=== PATIENT | female | born 1985 | race Two or more races ===

== ENCOUNTER 2021-04-03 09:53 | Emergency (ER) | payer SELFPAY ==
[~2021-04-03] VITALS: Ht 172.7 cm; Wt 50.3 kg
[2021-04-03] MEDS ORDERED: NALOXONE HCL 0.4 MG/ML AMPUL IM ONE (10:00)
[2021-04-03] MEDS ORDERED: NALOXONE HCL 0.4 MG/ML AMPUL ONE ×2 (10:04→11:13)
--- NOTE | 2021-04-03 10:18 | NUR ---
BLOOD SUGAR 65, WILL CONTINUE TO MONITOR
[2021-04-03 10:44] LABS: BASOPHILS % (AUTO) 0.5 % (0.0-2.0); EOSINOPHILS % (AUTO) 0.6 % (0.0-6.0); HEMATOCRIT 44 % (33-45); HEMOGLOBIN 14.7 g/dL (11.5-14.8); LYMPHOCYTES # (AUTO) 1.4 K/uL (0.8-4.8); LYMPHOCYTES % (AUTO) 26.7 % (20.0-44.0); MEAN CORPUSCULAR HGB CONC 34 g/dl (31.0-36.0); MEAN CORPUSCULAR VOLUME 96 fL (82-100); MONOCYTES # (AUTO) 0.3 K/uL (0.1-1.30); MONOCYTES % (AUTO) 6.5 % (2.0-12.0); NEUTROPHILS # (AUTO) 3.3 K/uL (1.8-8.9); NEUTROPHILS % (AUTO) 65.7 % (43.0-81.0); PLATELET COUNT (AUTO) 445 K/uL (150-450); RED BLOOD CELL COUNT(AUTO) 4.52 MIL/uL (4.0-5.2); WHITE BLOOD COUNT (AUTO) 5.1 K/uL (4.3-11.0)
[2021-04-03 10:56] LABS: CALCIUM, SERUM 8.9 mg/dL (8.5-10.1); CARBON DIOXIDE 31 mmol/L (21-32); CHLORIDE 103 mmol/L (98-107); CREATININE 0.7 mg/dL (0.6-1.3); GLUCOSE 85 mg/dL (74-106); POTASSIUM 3.7 mmol/L (3.5-5.1); SODIUM SERUM 139 mmol/L (136-145); UREA NITROGEN, BLOOD 10 mg/dL (7-18)
[2021-04-03 10:57] LABS: SERUM AMMONIA 15 umol/L (11-32)
[2021-04-03 11:02] LABS: ALANINE AMINOTRANSFERASE 33 U/L (12-78); ALBUMIN 3.5 g/dL (3.4-5.0); ALKALINE PHOSPHATASE 49 U/L (46-116); ASPARTATE AMINOTRANSFERASE 26 U/L (15-37); BILIRUBIN,DIRECT 0.1 mg/dL (0.0-0.2); BILIRUBIN,TOTAL 0.4 mg/dL (0.2-1.0); TOTAL PROTEIN, SERUM 7.4 g/dL (6.4-8.2)
[2021-04-03 12:11] LABS: ACETAMINOPHEN < 10 ug/ml (10-30)
[2021-04-03 12:13] LABS: ALCOHOL, BLOOD < 3 mg/dL (0-0)
--- NOTE | 2021-04-03 15:31 | NUR ---
THE PATIENT SLEEPING. RESPONSIVE TO TACTILE STIMULI BY MOVING HER BODY. RESPIRATION REGULAR AND UNLABORED. PATIENT IS IN NO APPARENT DISTRESS.
--- NOTE | 2021-04-03 18:02 | NUR ---
pt stable for discharge wanted to stay signed waiver PT. VERBALIZED UNDERSTANDING OF AFTERCARE INSTRUCTIONS.IV removed. Catheter intact and site benign. Pressure and 4x4 applied to site. No bleeding noted.
[2021-04-03 18:03] VITALS: BP 128/74
== END 2021-04-03 18:04 | disposition home or self-care (01) ==
LOC: ER 09:56
DX: F19.10 Other psychoactive substance abuse, uncomplicated (principal); R55 Syncope and collapse
CPT/HCPCS: 36415; 70450; 71045; 80048; 80076; 80143; 80307; 80320; 82140; 82962; 84484; 84703; 85025; 96374; 99285; J2310 ×2; G0480